=== PATIENT | male | born 1960 | race Caucasian/White ===

== ENCOUNTER 2023-08-05 09:08 | Emergency (ER) | payer BC ==
[2023-08-05 09:36] VITALS: RESP 18; BMI 31.8
[2023-08-05] MEDS ORDERED: IBUPROFEN 600 MG TABLET (FP) PO ONE (10:25)
[2023-08-05] MEDS: IBUPROFEN 600 MG TABLET (FP) PO ONE (10:49)
[2023-08-05] MEDS ORDERED: LIDOCAINE HCL 1%, 10 MG/ML (20ML VIAL) ONE (11:06)
[2023-08-05] MEDS ORDERED: morphine SULFATE 4 MG/ML VIAL ONE (11:10)
[2023-08-05] MEDS: morphine CARPU-JECT 4 MG/1 ML DISP.SYRIN IVPUSH ONE (11:50)
[2023-08-05 11:53] LABS: BASO % 0.3 % (0-2.0); EOS % 0.6 % (0-4.5); HEMATOCRIT 34.9 % (35.4-49); HEMOGLOBIN 12.1 GM/dL (11.7-16.9); LYMPH % 9.2 % (8-40); MCH 33.5 pg (25.7-33.7); MCHC 34.6 g/dl (32.0-35.9); MEAN CELL VOLUME 96.8 fl (80-96); MONO % 6.1 % (3.8-10.2); NEUT % 83.8 % (42.8-82.8); PLATELET COUNT 246 10^3/uL (134-434); RBC 3.61 M/mm3 (4.00-5.60); RDW 14.7 % (11.9-15.9)
[2023-08-05 12:00] LABS: INR 1.06 (0.83-1.09); PROTHROMBIN TIME (PATIENT) 12.3 SEC (9.7-13.0)
[2023-08-05 12:03] LABS: ACTIVATED PTT 26.7 SECONDS (25.2-36.5)
[2023-08-05 12:32] LABS: POTASSIUM 4.1 mmol/L (3.5-5.1)
[2023-08-05 12:37] LABS: CALCIUM 9.6 mg/dL (8.5-10.1)
[2023-08-05 12:38] LABS: ALBUMIN 3.9 g/dl (3.4-5.0); BLOOD UREA NITROGEN 27.6 mg/dL (7-18)
[2023-08-05 12:41] LABS: CREATININE 1.2 mg/dL (0.55-1.3)
[2023-08-05 12:43] LABS: BILIRUBIN,TOTAL 0.7 mg/dL (0.2-1); TOT PROT 7.4 g/dl (6.4-8.2)
[2023-08-05 14:54] VITALS: BP 131/56; PULSE 92; TEMP 98.2
== END 2023-08-05 15:18 | disposition home or self-care (01) ==
LOC: JER 09:08
PROC: 3E033GC Introduction of Other Therapeutic Substance into Peripheral Vein, Percutaneous Approach (ICD-10-PCS; principal; 2023-08-05)
DX: M25.572 Pain in left ankle and joints of left foot (principal); S82.852A Displaced trimalleolar fracture of left lower leg, initial encounter for closed fracture; W00.0XXA Fall on same level due to ice and snow, initial encounter
CPT/HCPCS: 36415; 73610-TC-RT-FY; 73630-TC-RT-FY; 80053; 85025; 85610; 85730; 86850; 86900; 86901; 99284-25